=== PATIENT | male | born 1990 | race Caucasian/White ===

== ENCOUNTER 2018-01-16 09:11 | Emergency (ER) | payer SELFPAY ==
[~2018-01-16] VITALS: Ht 180.3 cm; Wt 136.1 kg
[2018-01-16 09:44] VITALS: BP 139/98
[2018-01-16] MEDS ORDERED: AMOX500T PO (09:57)
--- NOTE | 2018-01-16 09:57 | PHYS DOC ---
Adult General Chief Complaint Chief Complaint: SORE THROAT HPI HPI Patient is a 27 year old male with no significant medical history who presents today with sore throat and bilateral ear pain for 2 days. Patient denies any fever coughing or congestion. Review of Systems Review of Systems Constitutional: Denies fever or chills [] Eyes: Denies change in visual acuity, redness, or eye pain [] HENT: Reports bilateral ear pain and sore throat. Denies nasal congestion Respiratory: Denies cough or shortness of breath [] Cardiovascular: No additional information not addressed in HPI [] GI: Denies abdominal pain, nausea, vomiting, bloody stools or diarrhea [] : Denies dysuria or hematuria [] Musculoskeletal: Denies back pain or joint pain [] Integument: Denies rash or skin lesions [] Neurologic: Denies headache, focal weakness or sensory changes [] All other systems were reviewed and found to be within normal limits, except as documented in this note. Physical Exam Physical Exam Constitutional: Well developed, well nourished, no acute distress, non-toxic appearance. [] HENT: Normocephalic, atraumatic, bilateral external ears normal, oropharynx moist, no oral exudates, nose normal. Bilateral TM are moderately injected right worse than left with cloudy fluid bilaterally. Posterior pharynx with mild erythema, midline uvula no exudate Eyes: PERRLA, EOMI, conjunctiva normal, no discharge. [] Neck: Normal range of motion, no tenderness, supple, no stridor. [] Cardiovascular:Heart rate regular rhythm, no murmur [] Lungs & Thorax: Bilateral breath sounds clear to auscultation [] Abdomen: Bowel sounds normal, soft, no tenderness, no masses, no pulsatile masses. [] Skin: Warm, dry, no erythema, no rash. [] Back: No tenderness, no CVA tenderness. [] Extremities: No tenderness, no cyanosis, no clubbing, ROM intact, no edema. [] Neurologic: Alert and oriented X 3, normal motor function, normal sensory function, no focal deficits noted. [] Psychologic: Affect normal, judgement normal, mood normal. [] EKG EKG [] Radiology/Procedures Radiology/Procedures [] Course & Med Decision Making Course & Med Decision Making Pertinent Labs and Imaging studies reviewed. (See chart for details) This is a 27-year-old male patient presenting to the ED today with physical exam consistent with otitis media and pharyngitis. Patient be discharged with amoxicillin. Tylenol/ Motrin for pain or fever. Saltwater gargles recommended. Follow-up 1-2 weeks. Provided return to questions and discharged in stable condition. Dragon Disclaimer Dragon Disclaimer This electronic medical record was generated, in whole or in part, using a voice recognition dictation system. Departure Departure Impression: Primary Impression: Acute otitis media Additional Impression: Pharyngitis, acute Disposition: 01 HOME, SELF-CARE Condition: STABLE Referrals: NO PCP (PCP) follow up with your doctor in 1-2 weeks Patient Instructions: Otitis Media, Adult, Viral and Bacterial Pharyngitis Additional Instructions: You have otitis media/ear infection and pharyngitis. Take the prescribed antibiotics as ordered ensure you complete them. Take Tylenol or Motrin for pain or fever, use saltwater gargles as needed for sore throat. Follow-up with your doctor in 2 weeks. Come back to the ED at any point symptoms worsen. Scripts Amoxicillin (AMOXICILLIN) 500 Mg Tablet 1 TAB PO TID, #30 TAB Prov: GAYLA ZURITA APRN 01/16/18 Problem Qualifiers Primary Impression: Acute otitis media Otitis media type: other nonsuppurative Laterality: bilateral Recurrence: not specified as recurrent Qualified Codes: H65.193 - Other acute nonsuppurative otitis media, bilateral Additional Impression: Pharyngitis, acute Pharyngitis/tonsillitis etiology: unspecified etiology Qualified Codes: J02.9 - Acute pharyngitis, unspecified GAYLA ZURITA SERVICE COORDINATOR Jan 16, 2018 09:57
== END 2018-01-16 10:00 | disposition home or self-care (01) ==
LOC: EDBD 09:11 → ER 09:11
DX: J02.9 Acute pharyngitis, unspecified (principal); H66.93 Otitis media, unspecified, bilateral
CPT/HCPCS: 99283

== ENCOUNTER 2018-06-12 19:50 | Emergency (ER) | payer SELFPAY ==
[~2018-06-12] VITALS: Ht 188 cm; Wt 131.5 kg
[~2018-06-12 19:50] MED LIST: AMOX500T PO
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
--- NOTE | 2018-06-12 21:19 | RAD ---
PROCEDURE: PORTABLE CHEST 1V CLINICAL INDICATION: DIZZINESS, BLURRED VISION X2 MONTHS. FACIAL NUMBNESS X1 DAY COMPARISON: None FINDINGS: No pneumothorax identified. Cardiac and mediastinal contours unremarkable. No pulmonary consolidation or acute airspace disease. No acute osseous abnormalities identified. IMPRESSION: No pulmonary consolidation or acute airspace disease. Electronically signed by: Gelacio Saldaña DO (06/12/2018 9:16 PM) [facility]
[2018-06-12 21:48] LABS: BASO # 0.1 x10^3/uL (0.0-0.2); BASO % 1 % (0-3); EOS # 0.2 x10^3/uL (0.0-0.7); EOS % 2 % (0-3); HEMATOCRIT 47.9 % (39.0-53.0); HEMOGLOBIN 16.8 g/dL (13.0-17.5); LYMPH # 3.4 x10^3/uL (1.0-4.8); LYMPH % 37 % (24-48); MEAN CORPUSCULAR HEMOGLOBIN 32 pg (25-35); MEAN CORPUSCULAR HGB CONC 35 g/dL (31-37); MEAN CORPUSCULAR VOLUME 90 fL (79-100); MONO # 0.6 x10^3/uL (0.0-1.1); MONO % 7 % (0-9); NEUT # 4.8 x10^3uL (1.8-7.7); NEUT % 53 % (31-73); PLATELET COUNT 213 x10^3/uL (140-400); RED BLOOD COUNT 5.33 x10^6/uL (4.30-5.70); RED CELL DISTRIBUTION WIDTH 13.1 % (11.5-14.5)
[2018-06-12 22:06] LABS: CALCIUM 9.3 mg/dL (8.5-10.1); CREATININE 0.6 mg/dL (0.7-1.3); GFR 160.4; POTASSIUM 3.9 mmol/L (3.5-5.1)
[2018-06-12 22:12] LABS: ALBUMIN 4.1 g/dL (3.4-5.0); TOTAL BILIRUBIN 0.6 mg/dL (0.2-1.0); TOTAL PROTEIN 8.1 g/dL (6.4-8.2)
[2018-06-12 23:27] VITALS: BP 136/67
--- NOTE | 2018-06-13 04:57 | EKG ---
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
== END 2018-06-12 23:25 | disposition home or self-care (01) ==
LOC: ER 19:50
DX: R07.89 Other chest pain (principal); R42 Dizziness and giddiness; R06.02 Shortness of breath
CPT/HCPCS: 36415; 71045; 80053; 83690; 84484; 85025; 93005; 99284-25

== ENCOUNTER 2018-06-29 14:05 | Emergency (ER) | payer SELFPAY ==
[~2018-06-29] VITALS: Ht 182.9 cm; Wt 131.5 kg
[2018-06-29 15:15] VITALS: BP 140/76
[2018-06-29] MEDS ORDERED: AMOX1TAB61 PO (16:56)
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
== END 2018-06-29 17:21 | disposition home or self-care (01) ==
LOC: ER 14:05
DX: H65.196 Other acute nonsuppurative otitis media, recurrent, bilateral (principal); J01.00 Acute maxillary sinusitis, unspecified
CPT/HCPCS: 87070; 87880; 99283

== ENCOUNTER 2018-08-02 20:01 | Emergency (ER) | payer SELFPAY ==
[~2018-08-02] VITALS: Ht 182.9 cm; Wt 131.5 kg
[~2018-08-02 20:01] MED LIST changes: +AMOX1TAB61 PO
[2018-08-02] MEDS ORDERED: ONDANSETRON PF 4 MG/2 ML VIAL. IV ONE (20:15)
[2018-08-02] MEDS ORDERED: KETOROLAC 30 MG/ML VIAL. IV ONE (20:15)
[2018-08-02 20:28] LABS: BILIRUBIN,URINE NEGATIVE (NEG); CLARITY,URINE CLEAR; COLOR,URINE YELLOW; NITRITE,URINE NEGATIVE (NEG); PROTEIN,URINE NEGATIVE (NEG-TRACE); UROBILINOGEN,URINE 0.2 mg/dL (0.2 mg/dL)
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
[2018-08-02 20:36] LABS: BASO # 0.1 x10^3/uL (0.0-0.2); BASO % 1 % (0-3); EOS # 0.2 x10^3/uL (0.0-0.7); EOS % 2 % (0-3); HEMATOCRIT 47.4 % (39.0-53.0); HEMOGLOBIN 16.8 g/dL (13.0-17.5); LYMPH # 3.3 x10^3/uL (1.0-4.8); LYMPH % 38 % (24-48); MEAN CORPUSCULAR HEMOGLOBIN 32 pg (25-35); MEAN CORPUSCULAR HGB CONC 35 g/dL (31-37); MEAN CORPUSCULAR VOLUME 90 fL (79-100); MONO # 0.6 x10^3/uL (0.0-1.1); MONO % 7 % (0-9); NEUT # 4.6 x10^3uL (1.8-7.7); NEUT % 53 % (31-73); PLATELET COUNT 237 x10^3/uL (140-400); RED BLOOD COUNT 5.28 x10^6/uL (4.30-5.70); RED CELL DISTRIBUTION WIDTH 12.9 % (11.5-14.5); WHITE BLOOD COUNT 8.7 x10^3/uL (4.0-11.0)
[2018-08-02 20:44] LABS: AMORPHOUS SEDIMENT,UR PRESENT /HPF; BACTERIA,URINE 0 /HPF (0-FEW); GRANULAR CASTS,URINE OCCASIONAL /HPF; RBC,URINE 0 /HPF (0-2); SQUAMOUS EPITHELIAL CELL,UR FEW /LPF; WBC,URINE 0 /HPF (0-4)
[2018-08-02 20:48] LABS: CALCIUM 10.3 mg/dL (8.5-10.1); CREATININE 0.8 mg/dL (0.7-1.3); GFR 115.1
[2018-08-02 20:53] LABS: ALBUMIN 4.3 g/dL (3.4-5.0); ALBUMIN/GLOBULIN RATIO 1.2 (1.0-1.7); TOTAL BILIRUBIN 0.8 mg/dL (0.2-1.0); TOTAL PROTEIN 7.9 g/dL (6.4-8.2)
--- NOTE | 2018-08-02 22:09 | RAD ---
CT abdomen and pelvis without contrast: Reason for examination: Bilateral flank pain. Helical images were obtained through the abdomen and pelvis with no intravenous or oral contrast administered. Reconstruction was performed in sagittal and coronal planes. Exposure: One or more of the following individualized dose reduction techniques were utilized for this examination: 1. Automated exposure control 2. Adjustment of the mA and/or kV according to patient size 3. Use of iterative reconstruction technique. The lung bases are clear. The heart size is normal with no pericardial effusion. No focal lesions are seen at the liver or spleen, adrenal glands or pancreas. The gallbladder is contracted but no choleliths are identified. The abdominal aorta and inferior vena cava show no acute abnormalities. No abnormality seen at the appendix. There is no evidence of diverticulosis or diverticulitis. The small intestinal tract is not distended or obstructed. No abnormality seen at the stomach. The kidneys show no renal calculi, renal masses, hydronephrosis or evidence of obstructive uropathy. There does appear to be some parenchymal scarring at the posterior upper pole of the left kidney. No abnormality seen at the bladder, prostate gland or seminal vesicles. No free fluid or free air is seen in the abdomen or pelvis. No acute bony abnormality seen. IMPRESSION: Parenchymal changes consistent with parenchymal scarring at the upper pole of the left kidney. No renal calculi, hydronephrosis or obstructive uropathy. No abnormality seen at the appendix. No other focal abnormality seen in the abdomen or pelvis. Electronically signed by: Halie Badillo MD (08/02/2018 10:05 PM) [facility]
[2018-08-02 22:30] VITALS: BP 139/76
[2018-08-02] MEDS ORDERED: CYCL10TA2 PO (22:32)
== END 2018-08-02 22:45 | disposition home or self-care (01) ==
LOC: ER 20:01
DX: M54.5 Low back pain (principal); R74.8 Abnormal levels of other serum enzymes; R10.9 Unspecified abdominal pain; R35.0 Frequency of micturition
CPT/HCPCS: 36415; 74176; 80053; 81001; 83690; 85025; 96374; 96375; 99285; J1885; J2405

== ENCOUNTER 2019-04-19 18:56 | Emergency (ER) | payer SELFPAY ==
[~2019-04-19] VITALS: Ht 180.3 cm; Wt 131.5 kg
[~2019-04-19 18:56] MED LIST changes: +CYCL10TA2 PO
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
[2019-04-19 20:06] LABS: BASO # 0.1 x10^3/uL (0.0-0.2); BASO % 1 % (0-3); EOS # 0.2 x10^3/uL (0.0-0.7); EOS % 2 % (0-3); HEMATOCRIT 44.6 % (39.0-53.0); HEMOGLOBIN 15.9 g/dL (13.0-17.5); LYMPH # 3.5 x10^3/uL (1.0-4.8); LYMPH % 32 % (24-48); MEAN CORPUSCULAR HEMOGLOBIN 32 pg (25-35); MEAN CORPUSCULAR HGB CONC 36 g/dL (31-37); MEAN CORPUSCULAR VOLUME 90 fL (79-100); MONO # 0.7 x10^3/uL (0.0-1.1); MONO % 6 % (0-9); NEUT # 6.5 x10^3/uL (1.8-7.7); NEUT % 59 % (31-73); PLATELET COUNT 241 x10^3/uL (140-400); RED BLOOD COUNT 4.96 x10^6/uL (4.30-5.70)
[2019-04-19 20:08] LABS: CALCIUM 9.7 mg/dL (8.5-10.1); CREATININE 0.7 mg/dL (0.7-1.3); GFR 134.3
[2019-04-19 20:14] LABS: ALBUMIN/GLOBULIN RATIO 1.2 (1.0-1.7); TOTAL BILIRUBIN 0.5 mg/dL (0.2-1.0); TOTAL PROTEIN 7.4 g/dL (6.4-8.2)
[2019-04-19] MEDS ORDERED: CONTRAST GIVEN. MC PRN (21:00)
[2019-04-19] MEDS ORDERED: IOHEXOL 350 MG/ML 100 ML VIAL. IV ONE (21:30)
[2019-04-19 21:55] VITALS: BP 130/70
--- NOTE | 2019-04-19 23:16 | RAD ---
STUDY: CT angiography of the head and neck INDICATION: Blurred vision. Neck pain. Right face paresthesia. COMPARISON: None. TECHNIQUE: Axial CT imaging of the head and neck utilizing angiography protocol and performed after the intravenous administration of 75 cc Omnipaque 350 contrast. Multiplanar reformats and 3D MIP acquisitions were obtained. Encountered areas of stenosis are measured per NASCET criteria. One or more of the following individualized dose reduction techniques were utilized for this examination: 1. Automated exposure control 2. Adjustment of the mA and/or kV according to patient size 3. Use of iterative reconstruction technique. FINDINGS: CTA NECK: Common origin of the brachiocephalic and left common carotid arteries as well as the left vertebral artery originating from the vertebral arch. Patent origins. Patent common and extracranial internal carotid arteries the right extracranial vertebral artery is dominant. No dissection. CTA HEAD: Dominant right intracranial vertebral artery. The nondominant left vertebral artery does still contribute to basilar flow. The basilar artery is widely patent. Patent P1 and P2 posterior cerebral artery segments. Limited evaluation more distally due to bolus timing. Patent intracranial internal carotid arteries. No flow-limiting stenosis or branch vessel occlusion seen to involve the anterior or middle cerebral arteries. No discrete aneurysm. The right transverse sinus is dominant. Patent dural sinuses. Patent major intracerebral veins. MISCELLANEOUS: Limited evaluation for acute intracranial hemorrhage given contrast administration. No mass effect, midline shift or hydrocephalus is apparent. IMPRESSION: 1. No extracranial or intracranial vascular abnormality is identified to account for the patient's symptoms. 2. Limited evaluation for acute intracranial hemorrhage given the intravenous administration of contrast. Taking this into consideration, no confluent hematoma is apparent. No mass effect, midline shift or hydrocephalus. Electronically signed by: INEZ LOPEZ MD (04/19/2019 11:13 PM) [facility]
== END 2019-04-19 23:43 | disposition home or self-care (01) ==
LOC: ER 18:56
DX: M54.2 Cervicalgia (principal); R20.2 Paresthesia of skin; R42 Dizziness and giddiness; R51 Headache; F41.9 Anxiety disorder, unspecified; I10 Essential (primary) hypertension; Z98.890 Other specified postprocedural states; Z91.040 Latex allergy status
CPT/HCPCS: 36415; 70496; 70498; 80053; 85025; 99285

== ENCOUNTER 2019-04-30 20:01 | Emergency (ER) | payer SELFPAY ==
[~2019-04-30] VITALS: Ht 182.9 cm; Wt 136.1 kg
[2019-04-30 20:10] VITALS: BP 161/120
[2019-04-30 20:39] LABS: BILIRUBIN,URINE NEGATIVE (NEG); CLARITY,URINE CLEAR; NITRITE,URINE NEGATIVE (NEG); PROTEIN,URINE NEGATIVE (NEG-TRACE); UROBILINOGEN,URINE 0.2 mg/dL (0.2 mg/dL)
[2019-04-30 20:42] LABS: COLOR,URINE STRAW
[2019-04-30 20:46] LABS: BACTERIA,URINE 0 /HPF (0-FEW); RBC,URINE 0 /HPF (0-2); SQUAMOUS EPITHELIAL CELL,UR FEW /LPF; WBC,URINE 0 /HPF (0-4)
[2019-04-30] MEDS ORDERED: PHEN100T82 PO (21:58)
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
== END 2019-04-30 22:00 | disposition home or self-care (01) ==
LOC: ER 20:01
DX: R30.0 Dysuria (principal); R50.9 Fever, unspecified; F41.9 Anxiety disorder, unspecified; I10 Essential (primary) hypertension; I45.4 Nonspecific intraventricular block; F12.90 Cannabis use, unspecified, uncomplicated; Z98.890 Other specified postprocedural states; Z91.040 Latex allergy status
CPT/HCPCS: 81001; 87491; 87591; 99284

== ENCOUNTER 2019-06-18 15:18 | Emergency (ER) | payer SELFPAY ==
[~2019-06-18] VITALS: Ht 182.9 cm; Wt 141.0 kg
[~2019-06-18 15:18] MED LIST changes: +PHEN100T82 PO
[2019-06-18] MEDS ORDERED: IV NORMAL SALINE 1000ML BAG 1,000 ML IV SCH (15:41)
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
[2019-06-18 16:05] LABS: BASO # 0.1 x10^3/uL (0.0-0.2); BASO % 1 % (0-3); EOS # 0.2 x10^3/uL (0.0-0.7); EOS % 2 % (0-3); HEMATOCRIT 44.9 % (39.0-53.0); HEMOGLOBIN 16.3 g/dL (13.0-17.5); LYMPH # 2.5 x10^3/uL (1.0-4.8); LYMPH % 24 % (24-48); MEAN CORPUSCULAR HEMOGLOBIN 32 pg (25-35); MEAN CORPUSCULAR HGB CONC 36 g/dL (31-37); MEAN CORPUSCULAR VOLUME 89 fL (79-100); MONO # 0.7 x10^3/uL (0.0-1.1); MONO % 7 % (0-9); NEUT # 7.2 x10^3/uL (1.8-7.7); NEUT % 68 % (31-73); PLATELET COUNT 240 x10^3/uL (140-400); RED BLOOD COUNT 5.04 x10^6/uL (4.30-5.70); RED CELL DISTRIBUTION WIDTH 12.6 % (11.5-14.5); WHITE BLOOD COUNT 10.7 x10^3/uL (4.0-11.0)
[2019-06-18 16:08] LABS: BILIRUBIN,URINE NEGATIVE (NEG); CLARITY,URINE CLEAR; COLOR,URINE YELLOW; NITRITE,URINE NEGATIVE (NEG); PH,URINE 6.5; PROTEIN,URINE NEGATIVE (NEG-TRACE); UROBILINOGEN,URINE 0.2 mg/dL (0.2 mg/dL)
[2019-06-18 16:16] LABS: BARBITURATES NEG (NEG); BENZODIAZEPINES NEG (NEG); CANNABINOIDS POS (NEG); COCAINE NEG (NEG); METHADONE NEG (NEG); OPIATES NEG (NEG); PHENCYCLIDINE NEG (NEG)
[2019-06-18 16:16] LABS: CALCIUM 9.6 mg/dL (8.5-10.1); CREATININE 0.8 mg/dL (0.7-1.3); GFR 114.3; POTASSIUM 3.6 mmol/L (3.5-5.1)
[2019-06-18 16:19] LABS: AMPHETAMINE/METHAMPHETAMINE NEG (NEG)
[2019-06-18 16:22] LABS: ALBUMIN 4.2 g/dL (3.4-5.0); ALBUMIN/GLOBULIN RATIO 1.3 (1.0-1.7); MAGNESIUM 1.9 mg/dL (1.8-2.4); TOTAL BILIRUBIN 0.6 mg/dL (0.2-1.0); TOTAL PROTEIN 7.5 g/dL (6.4-8.2)
[2019-06-18 16:25] LABS: BACTERIA,URINE 0 /HPF (0-FEW); WBC,URINE 0 /HPF (0-4)
[2019-06-18 16:55] VITALS: BP 141/63
--- NOTE | 2019-06-19 05:23 | EKG ---
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
== END 2019-06-18 17:25 | disposition home or self-care (01) ==
LOC: ER 15:18
DX: F41.9 Anxiety disorder, unspecified (principal); R55 Syncope and collapse; I10 Essential (primary) hypertension; I45.4 Nonspecific intraventricular block; F12.90 Cannabis use, unspecified, uncomplicated; F17.200 Nicotine dependence, unspecified, uncomplicated; Z91.040 Latex allergy status
CPT/HCPCS: 36415; 80053; 80307; 81001; 83735; 84484; 85025; 85379; 93005; 96361; 96374; 99284; J2060; J7030

== ENCOUNTER 2019-12-02 20:21 | Emergency (ER) | payer SELFPAY ==
[~2019-12-02] VITALS: Ht 182.9 cm; Wt 136.3 kg
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
[2019-12-02 21:38] LABS: CALCIUM 9.9 mg/dL (8.5-10.1); CREATININE 0.8 mg/dL (0.7-1.3); GFR 114.3; POTASSIUM 4.5 mmol/L (3.5-5.1)
[2019-12-02 21:39] LABS: PROTHROMBIN TIME PATIENT 13.8 SEC (11.7-14.0)
[2019-12-02 21:43] LABS: ALBUMIN 4.2 g/dL (3.4-5.0); ALBUMIN/GLOBULIN RATIO 1.2 (1.0-1.7); MAGNESIUM 2.5 mg/dL (1.8-2.4); TOTAL BILIRUBIN 0.5 mg/dL (0.2-1.0); TOTAL PROTEIN 7.8 g/dL (6.4-8.2)
--- NOTE | 2019-12-02 21:57 | RAD ---
PA and lateral chest radiographs 12/02/2019 CLINICAL HISTORY: Chest pain. PA and lateral digital radiographs of the chest were obtained. Comparison study is dated 06/12/2018. The cardiac and mediastinal silhouettes are within normal limits in size and configuration. No pulmonary infiltrate is seen. No pleural effusion or pneumothorax is noted. The osseous structures are grossly intact. IMPRESSION: No acute abnormality is seen. Electronically signed by: Enrique Perez MD (12/02/2019 9:54 PM) [id number]
[2019-12-02 22:11] LABS: BASO # 0.1 x10^3/uL (0.0-0.2); BASO % 1 % (0-3); EOS # 0.3 x10^3/uL (0.0-0.7); EOS % 3 % (0-3); HEMATOCRIT 45.2 % (39.0-53.0); HEMOGLOBIN 16.2 g/dL (13.0-17.5); LYMPH # 3.2 x10^3/uL (1.0-4.8); LYMPH % 30 % (24-48); MEAN CORPUSCULAR HEMOGLOBIN 32 pg (25-35); MEAN CORPUSCULAR HGB CONC 36 g/dL (31-37); MEAN CORPUSCULAR VOLUME 89 fL (79-100); MONO # 0.7 x10^3/uL (0.0-1.1); MONO % 7 % (0-9); NEUT # 6.5 x10^3/uL (1.8-7.7); NEUT % 60 % (31-73); PLATELET COUNT 235 x10^3/uL (140-400); RED BLOOD COUNT 5.11 x10^6/uL (4.30-5.70); RED CELL DISTRIBUTION WIDTH 12.8 % (11.5-14.5); WHITE BLOOD COUNT 10.7 x10^3/uL (4.0-11.0)
[2019-12-03 00:48] VITALS: BP 130/60
--- NOTE | 2019-12-03 07:15 | EKG ---
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
== END 2019-12-03 01:07 | disposition home or self-care (01) ==
LOC: ER 20:21
DX: R00.2 Palpitations (principal); R07.89 Other chest pain; F41.9 Anxiety disorder, unspecified; I10 Essential (primary) hypertension; F12.90 Cannabis use, unspecified, uncomplicated; Z87.891 Personal history of nicotine dependence; Z98.890 Other specified postprocedural states; Z91.040 Latex allergy status
CPT/HCPCS: 36415; 71046; 80053; 83735; 84443; 84484; 85025; 85610; 85730; 93005; 99285

== ENCOUNTER 2020-05-10 17:01 | Emergency (ER) | payer SELFPAY ==
[~2020-05-10] VITALS: Ht 180.3 cm; Wt 126.0 kg
[2020-05-10 18:14] LABS: BASO # 0.1 x10^3/uL (0.0-0.2); BASO % 1 % (0-3); EOS # 0.1 x10^3/uL (0.0-0.7); EOS % 1 % (0-3); HEMATOCRIT 45.3 % (39.0-53.0); LYMPH # 2.2 x10^3/uL (1.0-4.8); LYMPH % 28 % (24-48); MEAN CORPUSCULAR HEMOGLOBIN 31 pg (25-35); MEAN CORPUSCULAR HGB CONC 35 g/dL (31-37); MEAN CORPUSCULAR VOLUME 89 fL (79-100); MONO # 0.6 x10^3/uL (0.0-1.1); MONO % 8 % (0-9); NEUT # 4.7 x10^3/uL (1.8-7.7); NEUT % 62 % (31-73); PLATELET COUNT 220 x10^3/uL (140-400); RED CELL DISTRIBUTION WIDTH 12.7 % (11.5-14.5); WHITE BLOOD COUNT 7.7 x10^3/uL (4.0-11.0)
[2020-05-10 18:17] LABS: CALCIUM 9.9 mg/dL (8.5-10.1); CREATININE 0.8 mg/dL (0.7-1.3); GFR 113.5; POTASSIUM 3.9 mmol/L (3.5-5.1)
[2020-05-10 18:23] LABS: ALBUMIN 4.2 g/dL (3.4-5.0); ALBUMIN/GLOBULIN RATIO 1.2 (1.0-1.7); MAGNESIUM 2.3 mg/dL (1.8-2.4); TOTAL BILIRUBIN 1.1 mg/dL (0.2-1.0); TOTAL PROTEIN 7.7 g/dL (6.4-8.2)
[2020-05-10 18:31] LABS: CREATINE KINASE 60 U/L (39-308)
[2020-05-10 18:53] LABS: BILIRUBIN,URINE NEGATIVE (NEG); CLARITY,URINE CLOUDY; COLOR,URINE YELLOW; NITRITE,URINE NEGATIVE (NEG); PH,URINE 7.5 (<5.0-8.0); PROTEIN,URINE NEGATIVE (NEG-TRACE); UROBILINOGEN,URINE 0.2 mg/dL (0.2 mg/dL)
[2020-05-10 18:59] LABS: BACTERIA,URINE 0 /HPF (0-FEW); RBC,URINE 0 /HPF (0-2)
--- NOTE | 2020-05-10 19:18 | RAD ---
Exam performed: One view chest. Indication: Reason: chest pain / Spl. Instructions: / History: Date of Service: 05/10/2020 6:14 PM Comparison: Two-view chest from 12/02/2019. Single AP upright portable view chest findings: Cardiomediastinal silhouette is mildly enlarged. No acute infiltrates, effusion or pneumothorax is d etected. The bony structures are normal. Impression: No acute findings seen Electronically signed by: Yaneth Villalobos MD (05/10/2020 7:16 PM) [facility] CENTERGeremias
[2020-05-10] MEDS ORDERED: LIDO:MAALOX 1:1 20 ML SINGLE DOSE. SWSW ONE (20:30)
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
[2020-05-10 21:39] VITALS: BP 141/78
--- NOTE | 2020-05-12 10:14 | EKG ---
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
[2020-08-01] MEDS ORDERED: CALC200T23 PO (14:09)
[2020-08-01] MEDS ORDERED: ACET325T21 PO (14:09)
== END 2020-05-10 21:50 | disposition home or self-care (01) ==
LOC: ER 17:01
DX: R07.2 Precordial pain (principal); M79.602 Pain in left arm; E78.00 Pure hypercholesterolemia, unspecified; I10 Essential (primary) hypertension; F32.9 Major depressive disorder, single episode, unspecified; F41.9 Anxiety disorder, unspecified; Z87.891 Personal history of nicotine dependence; Z91.040 Latex allergy status
CPT/HCPCS: 36415; 71045; 80053; 81001; 82553; 83690; 83735; 83880; 84484; 85025; 85379; 93005; 99285-25

== ENCOUNTER 2020-06-20 21:29 | Observation (INO) | payer SELFPAY ==
[~2020-06-20] VITALS: Ht 180.3 cm; Wt 119.0 kg
--- NOTE | 2020-06-20 22:05 | EKG ---
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
[2020-06-20 22:09] LABS: BASO # 0.1 x10^3/uL (0.0-0.2); BASO % 1 % (0-3); EOS # 0.2 x10^3/uL (0.0-0.7); EOS % 2 % (0-3); HEMATOCRIT 43.9 % (39.0-53.0); HEMOGLOBIN 15.9 g/dL (13.0-17.5); LYMPH # 3.4 x10^3/uL (1.0-4.8); LYMPH % 32 % (24-48); MEAN CORPUSCULAR HEMOGLOBIN 32 pg (25-35); MEAN CORPUSCULAR HGB CONC 36 g/dL (31-37); MEAN CORPUSCULAR VOLUME 88 fL (79-100); MONO # 0.7 x10^3/uL (0.0-1.1); MONO % 7 % (0-9); NEUT # 6.2 x10^3/uL (1.8-7.7); NEUT % 59 % (31-73); PLATELET COUNT 227 x10^3/uL (140-400); RED CELL DISTRIBUTION WIDTH 13.2 % (11.5-14.5); WHITE BLOOD COUNT 10.7 x10^3/uL (4.0-11.0)
[2020-06-20] MEDS ORDERED: ASPIRIN 325 MG TABLET PO ONE (22:15)
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
[2020-06-20 22:21] LABS: CALCIUM 9.7 mg/dL (8.5-10.1); CREATININE 0.7 mg/dL (0.7-1.3); GFR 132.4; POTASSIUM 3.7 mmol/L (3.5-5.1)
[2020-06-20] MEDS: NITROGLYCERIN SUBLINGUAL 0.4 MG BOTTLE OF 25. SL PRN ×2 (22:21→22:29)
[2020-06-20 22:27] LABS: ALBUMIN 4.3 g/dL (3.4-5.0); ALBUMIN/GLOBULIN RATIO 1.2 (1.0-1.7); MAGNESIUM 2.3 mg/dL (1.8-2.4); TOTAL BILIRUBIN 1.1 mg/dL (0.2-1.0); TOTAL PROTEIN 7.9 g/dL (6.4-8.2)
--- NOTE | 2020-06-20 22:28 | RAD ---
Exam: Chest one view INDICATION: Chest pain TECHNIQUE: Frontal view of the chest Comparisons: 05/10/2020 FINDINGS: The cardiomediastinal silhouette and pulmonary vessels are within normal limits. The lung and pleural spaces are clear. IMPRESSION: No acute cardiopulmonary process. Electronically signed by: Yaneils Lowe MD (06/20/2020 10:25 PM) ADELITA
[2020-06-20 22:50] LABS: CREATINE KINASE 42 U/L (39-308)
[2020-06-20 23:30] VITALS: BP 151/53
[2020-06-20 23:43] LABS: BILIRUBIN,URINE NEGATIVE (NEG); CLARITY,URINE CLEAR; COLOR,URINE YELLOW; NITRITE,URINE NEGATIVE (NEG); PH,URINE 6.5 (<5.0-8.0); PROTEIN,URINE NEGATIVE (NEG-TRACE)
[2020-06-20 23:52] LABS: BACTERIA,URINE 0 /HPF (0-FEW)
[2020-06-21] MEDS ORDERED: PANT40TA77 PO (00:06)
[2020-06-21] MEDS ORDERED: NITR0.4T22 SL (00:06)
[2020-06-21] MEDS ORDERED: SERT50TA PO (00:06)
--- NOTE | 2020-06-21 02:36 | EKG ---
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
[2020-06-21 03:45] VITALS: BP 110/65
--- NOTE | 2020-06-21 06:14 | EKG ---
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
[2020-06-21 07:00] VITALS: BP 111/67
[2020-06-21] MEDS ORDERED: MAGNESIUM HYDROXIDE 2,400 MG/30 ML ORAL.SUSP. PO PRN (07:00)
[2020-06-21] MEDS ORDERED: CALCIUM CARBONATE 500 MG TAB.CHEW PO PRN (07:00)
[2020-06-21] MEDS ORDERED: ZOLPIDEM 5 MG TABLET. PO PRN (07:00)
[2020-06-21] MEDS ORDERED: ACETAMINOPHEN 325 MG TABLET. PO PRN (07:00)
[2020-06-21] MEDS ORDERED: ONDANSETRON PF 4 MG/2 ML VIAL. IVP PRN (07:00)
[2020-06-21] MEDS ORDERED: BISACODYL 10 MG SUPP.RECT. PR PRN (07:00)
[2020-06-21] MEDS ORDERED: MAG HYDROX/ALUMINUM HYD/SIMETH 30 ML ORAL.SUSP PO PRN (07:00)
[2020-06-21] MEDS ORDERED: MORPHINE SULFATE 2 MG/ML VIAL. IV PRN (07:00)
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
[2020-06-21 11:00] VITALS: BP 115/67
[2020-06-21] MEDS ORDERED: NITROGLYCERIN SUBLINGUAL 0.4 MG BOTTLE OF 25. SL PRN (12:30)
[2020-06-21] MEDS: SERTRALINE 50 MG TABLET. PO SCH (13:34)
[2020-06-21] MEDS: PANTOPRAZOLE 40 MG TABLET.DR. PO SCH (13:34)
[2020-06-21 15:00] VITALS: BP 115/62
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
[2020-06-21 19:45] VITALS: BP 107/70
[2020-06-21 23:35] VITALS: BP 127/64
[2020-06-22 03:30] VITALS: BP 125/73
[2020-06-22 06:10] LABS: ALBUMIN 3.7 g/dL (3.4-5.0); DIRECT BILIRUBIN 0.3 mg/dL (0.0-0.2); TOTAL BILIRUBIN 1.2 mg/dL (0.2-1.0); TOTAL PROTEIN 6.9 g/dL (6.4-8.2)
[2020-06-22 06:11] LABS: CHOLESTEROL/HDL RATIO 7.2
[2020-06-22 07:00] VITALS: BP 119/73
[2020-06-22] MEDS: SERTRALINE 50 MG TABLET. PO SCH (08:24)
[2020-06-22] MEDS: PANTOPRAZOLE 40 MG TABLET.DR. PO SCH (08:24)
--- NOTE | 2020-06-22 10:47 | PDOC ---
PROGRESS NOTES Date of Service DATE: 06/22/20 TIME: 10:45 Subjective Subjective Patient seen and examined Objective Objective Vital Signs Date Time Temp Pulse Resp B/P (MAP) Pulse Ox O2 Delivery O2 Flow Rate FiO2 06/22/20 07:40 Room Air 06/22/20 07:00 97.9 60 18 119/73 (88) 97 97.9 Intake and Output 06/22/20 07:00 Intake Total 480 ml Output Total 1200 ml Balance -720 ml Intake Oral 480 ml Output Urine Total 1200 ml Physical Exam Abdomen: Normal bowel sounds Heart: Regular rate General: No acute distress Lungs: Clear to auscultation Assessment Assessment Problems Medical Problems: (1) Chest pain Status: Acute 1. Chest pain. Chest pain has largely resolved. EKG shows no acute ischemic changes. Troponin has been normal x3. D-dimer is normal. The patient is feeling better. Echo pending this morning. If no significant abnormalities on his echo he may be discharged from a cardiac viewpoint and will follow up as an outpatient. 2. Reported pulmonary hypertension. Echocardiogram as above. 3. Hypertension. Reasonable control at this time we will continue to monitor. 4. Hyperlipidemia. Morning lab shows an LDL of 119, HDL of 23 and triglycerides of 115. Would attempt diet treatment with present medications. Outpatient follow-up. Comment Review of Relevant I have reviewed the following items caron (where applicable) has been applied. Labs Laboratory Tests Test 06/20/20 21:45 06/20/20 23:33 06/21/20 03:30 06/21/20 08:05 White Blood Count 10.7 x10^3/uL (4.0-11.0) Red Blood Count 5.00 x10^6/uL (4.30-5.70) Hemoglobin 15.9 g/dL (13.0-17.5) Hematocrit 43.9 % (39.0-53.0) Mean Corpuscular Volume 88 fL (79-100) Mean Corpuscular Hemoglobin 32 pg (25-35) Mean Corpuscular Hemoglobin Concent 36 g/dL (31-37) Red Cell Distribution Width 13.2 % (11.5-14.5) Platelet Count 227 x10^3/uL (140-400) Neutrophils (%) (Auto) 59 % (31-73) Lymphocytes (%) (Auto) 32 % (24-48) Monocytes (%) (Auto) 7 % (0-9) Eosinophils (%) (Auto) 2 % (0-3) Basophils (%) (Auto) 1 % (0-3) Neutrophils # (Auto) 6.2 x10^3/uL (1.8-7.7) Lymphocytes # (Auto) 3.4 x10^3/uL (1.0-4.8) Monocytes # (Auto) 0.7 x10^3/uL (0.0-1.1) Eosinophils # (Auto) 0.2 x10^3/uL (0.0-0.7) Basophils # (Auto) 0.1 x10^3/uL (0.0-0.2) D-Dimer (Liana) < 0.27 ug/mlFEU Sodium Level 139 mmol/L (136-145) Potassium Level 3.7 mmol/L (3.5-5.1) Chloride Level 102 mmol/L (98-107) Carbon Dioxide Level 27 mmol/L (21-32) Anion Gap 10 (6-14) Blood Urea Nitrogen 13 mg/dL (8-26) Creatinine 0.7 mg/dL (0.7-1.3) Estimated GFR (Cockcroft-Gault) 132.4 BUN/Creatinine Ratio 19 (6-20) Glucose Level 98 mg/dL (70-99) Calcium Level 9.7 mg/dL (8.5-10.1) Magnesium Level 2.3 mg/dL (1.8-2.4) Total Bilirubin 1.1 mg/dL (0.2-1.0) Aspartate Amino Transf (AST/SGOT) 32 U/L (15-37) Alanine Aminotransferase (ALT/SGPT) 84 U/L (16-63) Alkaline Phosphatase 79 U/L (46-116) Creatine Kinase 42 U/L (39-308) Creatine Kinase MB (Mass) < 0.5 ng/mL (0.0-3.6) Creatine Kinase MB Relative Index % (0-4) Troponin I Quantitative < 0.017 ng/mL (0.000-0.055) < 0.017 ng/mL (0.000-0.055) < 0.017 ng/mL (0.000-0.055) Total Protein 7.9 g/dL (6.4-8.2) Albumin 4.3 g/dL (3.4-5.0) Albumin/Globulin Ratio 1.2 (1.0-1.7) Lipase 83 U/L (73-393) Urine Collection Type Void Urine Color Yellow Urine Clarity Clear Urine pH 6.5 (<5.0-8.0) Urine Specific [place] <=1.005 (1.000-1.030) Urine Protein Negative mg/dL (NEG-TRACE) Urine Glucose (UA) Negative mg/dL (NEG) Urine Ketones (Stick) Negative mg/dL (NEG) Urine Blood Negative (NEG) Urine Nitrite Negative (NEG) Urine Bilirubin Negative (NEG) Urine Urobilinogen Dipstick 1.0 mg/dL (0.2 mg/dL) Urine Leukocyte Esterase Negative (NEG) Urine RBC 1-2 /HPF (0-2) Urine WBC 1-4 /HPF (0-4) Urine Squamous Epithelial Cells Occ /LPF Urine Bacteria 0 /HPF (0-FEW) Test 06/22/20 05:15 Total Bilirubin 1.2 mg/dL (0.2-1.0) Direct Bilirubin 0.3 mg/dL (0.0-0.2) Aspartate Amino Transf (AST/SGOT) 21 U/L (15-37) Alanine Aminotransferase (ALT/SGPT) 64 U/L (16-63) Alkaline Phosphatase 64 U/L (46-116) Total Protein 6.9 g/dL (6.4-8.2) Albumin 3.7 g/dL (3.4-5.0) Triglycerides Level 115 mg/dL (0-150) Cholesterol Level 165 mg/dL (0-200) LDL Cholesterol, Calculated 119 mg/dL (0-100) VLDL Cholesterol, Calculated 23 mg/dL (0-40) Non-HDL Cholesterol Calculated 142 mg/dL (0-129) HDL Cholesterol 23 mg/dL (40-60) Cholesterol/HDL Ratio 7.2 Laboratory Tests Test 06/22/20 05:15 Total Bilirubin 1.2 mg/dL (0.2-1.0) Direct Bilirubin 0.3 mg/dL (0.0-0.2) Aspartate Amino Transf (AST/SGOT) 21 U/L (15-37) Alanine Aminotransferase (ALT/SGPT) 64 U/L (16-63) Alkaline Phosphatase 64 U/L (46-116) Total Protein 6.9 g/dL (6.4-8.2) Albumin 3.7 g/dL (3.4-5.0) Triglycerides Level 115 mg/dL (0-150) Cholesterol Level 165 mg/dL (0-200) LDL Cholesterol, Calculated 119 mg/dL (0-100) VLDL Cholesterol, Calculated 23 mg/dL (0-40) Non-HDL Cholesterol Calculated 142 mg/dL (0-129) HDL Cholesterol 23 mg/dL (40-60) Cholesterol/HDL Ratio 7.2 Medications Current Medications Nitroglycerin (Nitrostat) 0.4 mg PRN Q5MIN PRN SL CHEST PAIN Last administered on 06/20/20at 22:29; Start 06/20/20 at 22:15; Stop 06/21/20 at 13:11; Status DC Aspirin (Sean Aspirin) 325 mg 1X ONCE PO Last administered on 06/20/20at 22:21; Start 06/20/20 at 22:15; Stop 06/20/20 at 22:25; Status DC Ondansetron HCl (Zofran) 4 mg PRN Q6HRS PRN IVP NAUSEA/VOMITING; Start 06/21/20 at 07:00 Al Hydroxide/Mg Hydroxide (Mylanta Plus Xs) 30 ml PRN Q3HRS PRN PO HEARTBURN / GAS; Start 06/21/20 at 07:00 Calcium Carbonate/ Glycine (Tums) 500 mg PRN Q3HRS PRN PO UPSET STOMACH; Start 06/21/20 at 07:00 Zolpidem Tartrate (Ambien) 5 mg PRN QHS PRN PO INSOMNIA, MAY REPEAT IN 1HR; Start 06/21/20 at 07:00 Morphine Sulfate (Morphine Sulfate) 2 mg PRN Q1HR PRN IV PAIN; Start 06/21/20 at 07:00 Acetaminophen (Tylenol) 650 mg PRN Q6HRS PRN PO Headaches, Temp > 101.5F; Start 06/21/20 at 07:00 Magnesium Hydroxide (Milk Of Magnesia) 2,400 mg PRN Q12HR PRN PO CONSTIPATION; Start 06/21/20 at 07:00 Bisacodyl (Dulcolax Supp) 10 mg PRN DAILY PRN MO CONSTIPATION; Start 06/21/20 at 07:00 Nitroglycerin (Nitrostat) 0.4 mg PRN Q5MIN PRN SL CHEST PAIN; Start 06/21/20 at 12:30 Pantoprazole Sodium (Protonix) 40 mg DAILYAC PO Last administered on 06/22/20at 08:24; Start 06/21/20 at 13:00 Sertraline HCl (Zoloft) 50 mg DAILY PO Last administered on 06/22/20at 08:24; Start 06/21/20 at 13:00 Active Scripts Active Reported Protonix (Pantoprazole Sodium) 40 Mg Tablet.dr 40 Mg PO DAILYAC Zoloft (Sertraline Hcl) 50 Mg Tablet 1 Tab PO DAILY NITROGLYCERIN SubLingual (Nitroglycerin) 0.4 Mg Tab.subl 0.4 Mg SL PRN Q5MIN PRN Vitals/I & O Vital Sign - Last 24 Hours 06/21/20 06/21/20 06/21/20 06/21/20 11:00 15:00 19:45 20:00 Temp 97.7 97.9 97.5 97.7 97.9 97.5 Pulse 57 61 63 Resp 16 16 17 B/P (MAP) 115/67 (83) 115/62 (79) 107/70 (82) Pulse Ox 97 97 96 O2 Delivery Room Air Room Air Room Air Room Air 06/21/20 06/22/20 06/22/20 06/22/20 23:35 03:30 07:00 07:40 Temp 97.9 97.7 97.9 97.9 97.7 97.9 Pulse 50 46 60 Resp 18 18 18 B/P (MAP) 127/64 (85) 125/73 (90) 119/73 (88) Pulse Ox 98 97 97 O2 Delivery Room Air Room Air Room Air Room Air Intake and Output 06/21/20 06/21/20 06/22/20 15:00 23:00 07:00 Intake Total 0 ml 240 ml 240 ml Output Total 0 ml 600 ml 600 ml Balance 0 ml -360 ml -360 ml Justifications for Admission Other Justification TREY VERDUGO MD Jun 22, 2020 10:47
[2020-06-22 11:00] VITALS: BP 114/72
--- NOTE | 2020-06-22 12:56 | CARD ---
MR#: [id number] Date of Study: 06/22/2020 Ordering Physician: HAILEE CAVAZOS, Referring Physician: HAILEE CAVAZOS, Tech: Kayla Nunez RDCS APPROVED REPORT EXAM: Two-dimensional and M-mode echocardiogram with Doppler and color Doppler. Other Information Quality : Good Rhythm : Bradycardia INDICATION Chest Pain 2D DIMENSIONS RVDd3.2 (2.9-3.5cm)Left Atrium(2D)4.5 (1.6-4.0cm) IVSd0.8 (0.7-1.1cm)Aortic Root(2D)3.3 (2.0-3.7cm) LVDd6.3 (3.9-5.9cm)LVOT Diameter2.7 (1.8-2.4cm) PWd0.9 (0.7-1.1cm)LVDs3.6 (2.5-4.0cm) FS (%) 43.1 %SV147.4 ml LVEF(%)60.0 (>50%) Aortic Valve AoV Peak Saul.140.2cm/Taz Peak GR.7.9mmHg Mitral Valve MV E Jwiteeye637.0cm/sMV DECEL CRET873xm MV A Qgakwdyn12.2cm/sE/A Ratio2.5 TDI Lateral E' P. V13.97cm/sMedial E' P. V8.37cm/s E/Lateral E'7.9E/Medial E'13.1 Tricuspid Valve TR P. Umoeorci502io/sRAP [id number] TR Peak Gr.30gbPnQENX97bjRp Pulmonary Vein S1 Gohjyfwn67.3cm/sS2 Rtmlurrm58.63cm/s D2 Vepshqfd81.6cm/s LEFT VENTRICLE The Left Ventricle is borderline dilated. There is normal left ventricular wall thickness. The left v entricular systolic function is normal and the ejection fraction is within normal range. The Ejection Fraction is 50-55%. There is normal LV segmental wall motion. The left ventricular diastolic functio n and filling is normal for age. RIGHT VENTRICLE The right ventricle is normal size. The right ventricular systolic function is normal. ATRIA The left atrium is mildly dilated. The right atrium is mildly dilated. The interatrial septum is inta ct with no evidence for an atrial septal defect or patent foramen ovale as noted on 2-D or Doppler im aging. AORTIC VALVE The aortic valve is normal in structure and function. Doppler and Color Flow revealed no significant aortic regurgitation. There is no significant aortic valvular stenosis. MITRAL VALVE The mitral valve is normal in structure and function. There is no evidence of mitral valve prolapse. There is no mitral valve stenosis. Doppler and Color Flow revealed no mitral valve regurgitation note d. TRICUSPID VALVE The tricuspid valve is normal in structure and function. Doppler and Color Flow revealed trace tricus pid regurgitation. The PA pressure was estimated at 21 mmHg. There is no tricuspid valve stenosis. PULMONIC VALVE The pulmonic valve is not well visualized. Doppler and Color Flow revealed trace pulmonic valvular re gurgitation. There is no pulmonic valvular stenosis. GREAT VESSELS The aortic root is normal in size. The ascending aorta is normal in size. The IVC is normal in size a nd collapses >50% with inspiration. PERICARDIAL EFFUSION There is no evidence of significant pericardial effusion. Critical Notification Critical Value: No <Conclusion> The Left Ventricle is borderline dilated. The left ventricular systolic function is normal and the ejection fraction is within normal range. The Ejection Fraction is 50-55%. Doppler and Color Flow revealed no significant aortic regurgitation. There is no significant aortic valvular stenosis. Doppler and Color Flow revealed no mitral valve regurgitation noted. Doppler and Color Flow revealed trace tricuspid regurgitation. The PA pressure was estimated at 21 mmHg. Signed by : Rodriguez Paz MD Electronically Approved : 06/22/2020 12:56:01
[2020-06-22] MEDS ORDERED: LIDO:MAALOX 1:1 20 ML SINGLE DOSE. SWSW ONE (13:00)
--- NOTE | 2020-06-22 13:27 | PDOC ---
[employer] PROGRESS NOTE Date of Service DOS: DATE: 06/22/20 TIME: 12:39 Chief Complaint Chief Complaint Chest pain Obesity Hypertension Plan: Troponins were negative x2, received aspirin in ED Consults cardiology Will obtain TTE Morphine, nitroglycerin as needed FEN - Cardiac diet PPX - SCDs FULL CODE History of Present Illness History of Present Illness Mr Davison is a 30 yo M w/ PMHx hypertension, hyperlipidemia, anxiety, depression, obesity who presents to the ER with complaints of left-sided chest pain that began 1-2 hours prior to arrival. He was "vigorously" cleaning his home prior to this. Reported left-sided chest pain, 6/10, and describes his pain as "heaviness and tightness ". Some associated diaphoresis. He has a history of angina and took his own nitroglycerin with some improvement. Will admit for further medical management. LDL is 119, A1c is 4.7. No risk factors. Echocardiogram with no abnormalities troponins negative and EKG without any concerning findings. Cardiology was consulted as patient noted that he had an abnormal cardiac work-up over in [facility]. On further investigation it turns just had a similar investigation if he had here. He does have a lot of life stressors currently in significant anxiety that Jeffery is not controlling. He does follow with [facility] and has been trying to follow-up on Zoom with them. 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 He has a 9-year-old stepson in fourth grade and a 6-year-old daughter in kindergarten but she currently lives with her grandparents in [place], he notes this is the required thing because his has some "issues". He does not want to discuss why his 6-year-old daughter is not currently living with him and his . Vitals/I&O Vitals/I&O: Vital Signs Date Time Temp Pulse Resp B/P (MAP) Pulse Ox O2 Delivery O2 Flow Rate FiO2 06/22/20 11:00 98.0 63 18 114/72 (86) 98 Room Air 98.0 I & O 06/21/20 06/21/20 06/22/20 15:00 23:00 07:00 Intake Total 0 ml 240 ml 240 ml Output Total 0 ml 600 ml 600 ml Balance 0 ml -360 ml -360 ml Physical Exam General: No acute distress Heart: Regular rate Abdomen: Normal bowel sounds Labs Labs: Laboratory Tests Test 06/22/20 05:15 Total Bilirubin 1.2 mg/dL (0.2-1.0) Direct Bilirubin 0.3 mg/dL (0.0-0.2) Aspartate Amino Transf (AST/SGOT) 21 U/L (15-37) Alanine Aminotransferase (ALT/SGPT) 64 U/L (16-63) Alkaline Phosphatase 64 U/L (46-116) Total Protein 6.9 g/dL (6.4-8.2) Albumin 3.7 g/dL (3.4-5.0) Triglycerides Level 115 mg/dL (0-150) Cholesterol Level 165 mg/dL (0-200) LDL Cholesterol, Calculated 119 mg/dL (0-100) VLDL Cholesterol, Calculated 23 mg/dL (0-40) Non-HDL Cholesterol Calculated 142 mg/dL (0-129) HDL Cholesterol 23 mg/dL (40-60) Cholesterol/HDL Ratio 7.2 Assessment and Plan Assessmemt and Plan Problems Medical Problems: (1) Chest pain Status: Acute Comment Review of Relevant I have reviewed the following items caron (where applicable) has been applied. Medications: Current Medications Medications (Trade) Dose Ordered Sig/Nadine Route PRN Reason Start Time Stop Time Status Last Admin Dose Admin Pantoprazole Sodium (Protonix) 40 mg DAILYAC PO 06/21/20 13:00 06/22/20 08:24 Sertraline HCl (Zoloft) 50 mg DAILY PO 06/21/20 13:00 06/22/20 08:24 Justifications for Admission Other Justification WINNIE ELIZABETH MD Jun 22, 2020 13:27
--- NOTE | 2020-06-22 13:39 | PDOC3 ---
Discharge Summary Visit Information Date of Admission: Jun 20, 2020 Date of Discharge: Jun 22, 2020 Admitting Diagnosis: Chest pain Final Diagnosis Problems Medical Problems: (1) Chest pain Status: Acute Brief Hospital Course Allergies Allergies Coded Allergies Type Severity Reaction Last Updated Verified diphenhydramine Allergy Intermediate Unknown 06/21/20 Yes hydroxyzine Allergy Intermediate Unknown 06/21/20 Yes latex Allergy Intermediate 05/10/20 Yes Vital Signs Vital Signs Date Time Temp Pulse Resp B/P (MAP) Pulse Ox O2 Delivery O2 Flow Rate FiO2 06/22/20 11:00 98.0 63 18 114/72 (86) 98 Room Air 98.0 Lab Results Laboratory Tests Test 06/20/20 21:45 06/20/20 23:33 06/21/20 03:30 06/21/20 08:05 White Blood Count 10.7 x10^3/uL (4.0-11.0) Red Blood Count 5.00 x10^6/uL (4.30-5.70) Hemoglobin 15.9 g/dL (13.0-17.5) Hematocrit 43.9 % (39.0-53.0) Mean Corpuscular Volume 88 fL (79-100) Mean Corpuscular Hemoglobin 32 pg (25-35) Mean Corpuscular Hemoglobin Concent 36 g/dL (31-37) Red Cell Distribution Width 13.2 % (11.5-14.5) Platelet Count 227 x10^3/uL (140-400) Neutrophils (%) (Auto) 59 % (31-73) Lymphocytes (%) (Auto) 32 % (24-48) Monocytes (%) (Auto) 7 % (0-9) Eosinophils (%) (Auto) 2 % (0-3) Basophils (%) (Auto) 1 % (0-3) Neutrophils # (Auto) 6.2 x10^3/uL (1.8-7.7) Lymphocytes # (Auto) 3.4 x10^3/uL (1.0-4.8) Monocytes # (Auto) 0.7 x10^3/uL (0.0-1.1) Eosinophils # (Auto) 0.2 x10^3/uL (0.0-0.7) Basophils # (Auto) 0.1 x10^3/uL (0.0-0.2) D-Dimer (Liana) < 0.27 ug/mlFEU Sodium Level 139 mmol/L (136-145) Potassium Level 3.7 mmol/L (3.5-5.1) Chloride Level 102 mmol/L (98-107) Carbon Dioxide Level 27 mmol/L (21-32) Anion Gap 10 (6-14) Blood Urea Nitrogen 13 mg/dL (8-26) Creatinine 0.7 mg/dL (0.7-1.3) Estimated GFR (Cockcroft-Gault) 132.4 BUN/Creatinine Ratio 19 (6-20) Glucose Level 98 mg/dL (70-99) Calcium Level 9.7 mg/dL (8.5-10.1) Magnesium Level 2.3 mg/dL (1.8-2.4) Total Bilirubin 1.1 mg/dL (0.2-1.0) Aspartate Amino Transf (AST/SGOT) 32 U/L (15-37) Alanine Aminotransferase (ALT/SGPT) 84 U/L (16-63) Alkaline Phosphatase 79 U/L (46-116) Creatine Kinase 42 U/L (39-308) Creatine Kinase MB (Mass) < 0.5 ng/mL (0.0-3.6) Creatine Kinase MB Relative Index % (0-4) Troponin I Quantitative < 0.017 ng/mL (0.000-0.055) < 0.017 ng/mL (0.000-0.055) < 0.017 ng/mL (0.000-0.055) Total Protein 7.9 g/dL (6.4-8.2) Albumin 4.3 g/dL (3.4-5.0) Albumin/Globulin Ratio 1.2 (1.0-1.7) Lipase 83 U/L (73-393) Urine Collection Type Void Urine Color Yellow Urine Clarity Clear Urine pH 6.5 (<5.0-8.0) Urine Specific [place] <=1.005 (1.000-1.030) Urine Protein Negative mg/dL (NEG-TRACE) Urine Glucose (UA) Negative mg/dL (NEG) Urine Ketones (Stick) Negative mg/dL (NEG) Urine Blood Negative (NEG) Urine Nitrite Negative (NEG) Urine Bilirubin Negative (NEG) Urine Urobilinogen Dipstick 1.0 mg/dL (0.2 mg/dL) Urine Leukocyte Esterase Negative (NEG) Urine RBC 1-2 /HPF (0-2) Urine WBC 1-4 /HPF (0-4) Urine Squamous Epithelial Cells Occ /LPF Urine Bacteria 0 /HPF (0-FEW) Test 06/22/20 05:15 Total Bilirubin 1.2 mg/dL (0.2-1.0) Direct Bilirubin 0.3 mg/dL (0.0-0.2) Aspartate Amino Transf (AST/SGOT) 21 U/L (15-37) Alanine Aminotransferase (ALT/SGPT) 64 U/L (16-63) Alkaline Phosphatase 64 U/L (46-116) Total Protein 6.9 g/dL (6.4-8.2) Albumin 3.7 g/dL (3.4-5.0) Triglycerides Level 115 mg/dL (0-150) Cholesterol Level 165 mg/dL (0-200) LDL Cholesterol, Calculated 119 mg/dL (0-100) VLDL Cholesterol, Calculated 23 mg/dL (0-40) Non-HDL Cholesterol Calculated 142 mg/dL (0-129) HDL Cholesterol 23 mg/dL (40-60) Cholesterol/HDL Ratio 7.2 Laboratory Tests Test 06/22/20 05:15 Total Bilirubin 1.2 mg/dL (0.2-1.0) Direct Bilirubin 0.3 mg/dL (0.0-0.2) Aspartate Amino Transf (AST/SGOT) 21 U/L (15-37) Alanine Aminotransferase (ALT/SGPT) 64 U/L (16-63) Alkaline Phosphatase 64 U/L (46-116) Total Protein 6.9 g/dL (6.4-8.2) Albumin 3.7 g/dL (3.4-5.0) Triglycerides Level 115 mg/dL (0-150) Cholesterol Level 165 mg/dL (0-200) LDL Cholesterol, Calculated 119 mg/dL (0-100) VLDL Cholesterol, Calculated 23 mg/dL (0-40) Non-HDL Cholesterol Calculated 142 mg/dL (0-129) HDL Cholesterol 23 mg/dL (40-60) Cholesterol/HDL Ratio 7.2 Brief Hospital Course Mr Davison is a 30 yo M w/ PMHx hypertension, hyperlipidemia, anxiety, depression, obesity who presents to the ER with complaints of left-sided chest pain that began 1-2 hours prior to arrival. He was "vigorously" cleaning his home prior to this. Reported left-sided chest pain, 09/25, and describes his pain as "heaviness and tightness ". Some associated diaphoresis. He has a history of angina and took his own nitroglycerin with some improvement. Will admit for further medical management. LDL is 119, A1c is 4.7. No risk factors. Echocardiogram with no abnormalities, borderline enlarged LV, troponins negative and EKG without any concerning findings. Cardiology was consulted as patient noted that he had an abnormal cardiac work-up over in [facility]. On further investigation it turns just had a similar investigation if he had here. He does have a lot of life stressors currently in significant anxiety that Zoloft is not controlling. He does follow with [facility] and has been trying to follow-up on Zoom with them. 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 He has a 9-year-old stepson in fourth grade and a 6-year-old daughter in kindergarten but she currently lives with her grandparents in [place], he notes this is the required thing because his has some "issues". He does not want to discuss why his 6-year-old daughter is not currently living with him and his . Consults: Cardiology Problem list: Chest pain Obesity Hypertension Anxiety with depression Greater than 30 minutes spent on d/c home with self care Discharge Information Condition at Discharge: Improved Follow Up: Weeks (1) Disposition/Orders: D/C to Home Scheduled Pantoprazole Sodium (Protonix ) 40 Mg Tablet.dr, 40 MG PO DAILYAC for GERD, (Reported) Entered as Reported by: SAMMIE CANNON RN on 06/21/205 Last Action: Continued on 06/21/201221 by DEEJAY SAUER Sertraline Hcl (Zoloft) 50 Mg Tablet, 1 TAB PO DAILY for mental health , #30 Ref 2 (Reported) Entered as Reported by: SAMMIE CANNON RN on 06/21/205 Last Action: Continued on 06/21/201221 by DEEJAY SAUER Scheduled PRN Nitroglycerin (NITROGLYCERIN SubLingual) 0.4 Mg Tab.subl, 0.4 MG SL PRN Q5MIN PRN for CHEST PAIN, (Reported) Entered as Reported by: SAMMIE CANNON RN on 06/21/206 Last Action: Continued on 06/21/20 1222 by DEEJAY SAUER Justicifation of Admission Dx: Justifications for Admission: Justification of Admission Dx: N/A WINNIE ELIZABETH MD Jun 22, 2020 13:39
--- NOTE | 2020-06-22 15:49 | NUR ---
Pt alert and oriented throughout shift. Pt with no complaitns throughout shift. Pt tolerated IV removal. Catheter tip intact, pressure applied, bleeding stopped. Pt educated on next does of medications. Pt educated on chest pain and anxiety. Pt walked out to door by RN. Pt got in private vehicle with his .
== END 2020-06-22 15:58 | disposition home or self-care (01) ==
LOC: ER 21:29 → 2 NORTH 22:57 → ER 23:20
PROVIDERS: ADMIT Internal Medicine; ATTEND Internal Medicine
DX: R07.89 Other chest pain (principal); I10 Essential (primary) hypertension; I45.4 Nonspecific intraventricular block; E66.9 Obesity, unspecified; E78.00 Pure hypercholesterolemia, unspecified; E78.5 Hyperlipidemia, unspecified; F41.9 Anxiety disorder, unspecified; F32.9 Major depressive disorder, single episode, unspecified; F41.8 Other specified anxiety disorders; I27.20 Pulmonary hypertension, unspecified; K76.0 Fatty (change of) liver, not elsewhere classified; Z87.891 Personal history of nicotine dependence; Z79.82 Long term (current) use of aspirin; Z98.890 Other specified postprocedural states; Z68.36 Body mass index [BMI] 36.0-36.9, adult
CPT/HCPCS: 36415; 71045; 80053; 80061; 80076; 81001; 82553; 83690; 83735; 84484; 85025; 85379; 93005; 93306; 99285; G0378; G0379

== ENCOUNTER 2020-08-03 19:20 | Observation (INO) | payer SELFPAY ==
[~2020-08-03] VITALS: Ht 182.9 cm; Wt 119.5 kg
[~2020-08-03 19:20] MED LIST changes: +ACET325T21 PO; +CALC200T23 PO; +NITR0.4T22 SL; +PANT40TA77 PO; +SERT50TA PO
[2020-08-03 19:49] LABS: BASO % 0 % (0-3); EOS # 0.2 x10^3/uL (0.0-0.7); EOS % 2 % (0-3); HEMATOCRIT 44.2 % (39.0-53.0); LYMPH # 0.8 x10^3/uL (1.0-4.8); LYMPH % 7 % (24-48); MEAN CORPUSCULAR HEMOGLOBIN 32 pg (25-35); MEAN CORPUSCULAR HGB CONC 36 g/dL (31-37); MEAN CORPUSCULAR VOLUME 89 fL (79-100); MONO # 0.6 x10^3/uL (0.0-1.1); MONO % 6 % (0-9); NEUT # 9.6 x10^3/uL (1.8-7.7); NEUT % 86 % (31-73); PLATELET COUNT 228 x10^3/uL (140-400); RED CELL DISTRIBUTION WIDTH 12.7 % (11.5-14.5); WHITE BLOOD COUNT 11.2 x10^3/uL (4.0-11.0)
[2020-08-03 19:59] LABS: CALCIUM 9.7 mg/dL (8.5-10.1); CREATININE 0.7 mg/dL (0.7-1.3); GFR 132.4; POTASSIUM 4.1 mmol/L (3.5-5.1)
[2020-08-03 19:59] LABS: BILIRUBIN,URINE NEGATIVE (NEG); CLARITY,URINE CLEAR; COLOR,URINE YELLOW; NITRITE,URINE NEGATIVE (NEG); PH,URINE 6.5 (<5.0-8.0); PROTEIN,URINE NEGATIVE (NEG-TRACE)
[2020-08-03 20:05] LABS: ALBUMIN 4.2 g/dL (3.4-5.0); ALBUMIN/GLOBULIN RATIO 1.1 (1.0-1.7); MAGNESIUM 2.1 mg/dL (1.8-2.4); TOTAL BILIRUBIN 0.9 mg/dL (0.2-1.0); TOTAL PROTEIN 8.1 g/dL (6.4-8.2)
[2020-08-03 20:07] LABS: BACTERIA,URINE 0 /HPF (0-FEW); RBC,URINE 0 /HPF (0-2)
[2020-08-03 20:09] LABS: WBC,URINE RARE /HPF (0-4)
[2020-08-03 20:10] LABS: % LYMPHS 4 % (24-48); % MONOS 2 % (0-10); % SEGS 94 % (35-66); PLT ESTIMATE ADEQUATE (ADEQUATE)
--- NOTE | 2020-08-03 20:32 | RAD ---
Exam: Chest one view INDICATION: Chest pain TECHNIQUE: Frontal view of the chest Comparisons: 07/31/2020 FINDINGS: The cardiomediastinal silhouette and pulmonary vessels are within normal limits. The lung and pleural spaces are clear. IMPRESSION: No acute cardiopulmonary process. Electronically signed by: Yanelis Lowe MD (08/03/2020 8:29 PM) ADELITA
--- NOTE | 2020-08-03 21:50 | EKG ---
[facility] [address] [place] [address] Test Date: 2020-08-03 Test Time: 19:25:27 Pat Name: MARILYN GUAN Department: Room: Gender: M Office Nurse: : 1990 Requested By: ZHAO TY Order Number: [id number] Reading MD: Measurements Intervals [place] Rate: 97 P: 34 MD: 138 QRS: -23 QRSD: 96 T: 40 QT: 342 QTc: 438 Interpretive Statements SINUS RHYTHM LEFTWARD AXIS OTHERWISE NORMAL ECG RI6.02 No previous ECG available for comparison
[2020-08-03] MEDS ORDERED: IV NORMAL SALINE 1000ML BAG 1,000 ML IV ONE (22:00)
[2020-08-03] MEDS ORDERED: ONDANSETRON PF 4 MG/2 ML VIAL. IVP ONE (22:00)
[2020-08-03] MEDS ORDERED: AZIT500T4 PO (23:33)
[2020-08-03] MEDS ORDERED: DEXA6TAB PO (23:33)
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
[2020-08-03] MEDS ORDERED: ONDA4TAB7 PO (23:50)
[2020-08-04] MEDS ORDERED: ONDANSETRON PF 4 MG/2 ML VIAL. IV PRN (00:30)
--- NOTE | 2020-08-04 03:52 | EKG ---
[facility] [address] [place] [address] Test Date: 2020-08-03 Test Time: 23:40:40 Pat Name: MARILYN GUAN Department: Room: Gender: M [employer] Director: : 1990 Requested By: ZHAO TY Order Number: [id number] Reading MD: Measurements Intervals [place] Rate: 101 P: 13 CO: 144 QRS: -9 QRSD: 90 T: 19 QT: 326 QTc: 429 Interpretive Statements SINUS TACHYCARDIA LEFTWARD AXIS OTHERWISE NORMAL ECG RI6.02 No previous ECG available for comparison
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
[2020-08-04] MEDS ORDERED: KETOROLAC 30 MG/ML VIAL. ONE (08:27)
[2020-08-04] MEDS ORDERED: KETOROLAC 30 MG/ML VIAL. IVP PRN (08:30)
[2020-08-04] MEDS ORDERED: NITROGLYCERIN SUBLINGUAL 0.4 MG BOTTLE OF 25. SL PRN (13:45)
[2020-08-04] MEDS ORDERED: CALCIUM CARBONATE 500 MG TAB.CHEW PO PRN (13:45)
[2020-08-04] MEDS ORDERED: ACETAMINOPHEN 325 MG TABLET. PO PRN (13:45)
[2020-08-04] MEDS ORDERED: ONDANSETRON ODT 4 MG TAB.RAPDIS. PO PRN (14:00)
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
[2020-08-04] MEDS ORDERED: DOXY100T PO (14:13)
--- NOTE | 2020-08-04 14:14 | DISCH ---
DISCHARGE INSTRUCTIONS Condition on Discharge Condition on Discharge: Stable Activity After Discharge Activity Instructions for Disc: Activity as tolerated Lifting Instructions after Dis: No heavy lifting, No pulling or pushing Exercise Instruction after Dis: Progress as tolerated Driving Instructions after Dis: Do not drive today Weight Bearing Status after Di: No restrictions Diet after Discharge Diet after Discharge: Cardiac Diet Texture: Regular Liquid Texture: Thin Liquid Swallowing Supervision: None needed Checks after Discharge Checks after discharge: Check blood press - daily Contacting the DR. after DC Call your doctor for: If your condition worsens Follow-Up Follow up with: pcp this week Treatment/Equipment after DC Adaptive Equipment Issued: None NOEL DONOHUE MD Aug 04, 2020 14:14
[2020-08-04 16:27] VITALS: BP 114/60
--- NOTE | 2020-08-04 17:04 | PDOC ---
DAHLIA PHILLIPS IMPREGNATOR 08/04/20 1704: CARDIO Progress Notes Date and Time Date of Service 08/04/20 Time of Evaluation 1310 Subjective Subjective: No shortness of breath, No Palpitations, Other (feeling tired. CP improved ) Vitals Vitals Vital Signs Date Time Temp Pulse Resp B/P (MAP) Pulse Ox O2 Delivery O2 Flow Rate FiO2 08/04/20 12:30 62 20 113/58 (76) 96 Room Air 08/03/20 20:23 98.8 98.8 Weight Weight [ ] Laboratory Labs Laboratory Tests Test 08/03/20 19:35 08/03/20 19:52 08/03/20 20:25 08/03/20 22:20 White Blood Count 11.2 x10^3/uL (4.0-11.0) Red Blood Count 5.00 x10^6/uL (4.30-5.70) Hemoglobin 16.0 g/dL (13.0-17.5) Hematocrit 44.2 % (39.0-53.0) Mean Corpuscular Volume 89 fL (79-100) Mean Corpuscular Hemoglobin 32 pg (25-35) Mean Corpuscular Hemoglobin Concent 36 g/dL (31-37) Red Cell Distribution Width 12.7 % (11.5-14.5) Platelet Count 228 x10^3/uL (140-400) Neutrophils (%) (Auto) 86 % (31-73) Lymphocytes (%) (Auto) 7 % (24-48) Monocytes (%) (Auto) 6 % (0-9) Eosinophils (%) (Auto) 2 % (0-3) Basophils (%) (Auto) 0 % (0-3) Neutrophils # (Auto) 9.6 x10^3/uL (1.8-7.7) Lymphocytes # (Auto) 0.8 x10^3/uL (1.0-4.8) Monocytes # (Auto) 0.6 x10^3/uL (0.0-1.1) Eosinophils # (Auto) 0.2 x10^3/uL (0.0-0.7) Basophils # (Auto) 0.0 x10^3/uL (0.0-0.2) Segmented Neutrophils % 94 % (35-66) Lymphocytes % 4 % (24-48) Monocytes % 2 % (0-10) Platelet Estimate Adequate (ADEQUATE) D-Dimer (Liana) < 0.27 ug/mlFEU Sodium Level 144 mmol/L (136-145) Potassium Level 4.1 mmol/L (3.5-5.1) Chloride Level 104 mmol/L (98-107) Carbon Dioxide Level 28 mmol/L (21-32) Anion Gap 12 (6-14) Blood Urea Nitrogen 12 mg/dL (8-26) Creatinine 0.7 mg/dL (0.7-1.3) Estimated GFR (Cockcroft-Gault) 132.4 BUN/Creatinine Ratio 17 (6-20) Glucose Level 93 mg/dL (70-99) Calcium Level 9.7 mg/dL (8.5-10.1) Magnesium Level 2.1 mg/dL (1.8-2.4) Total Bilirubin 0.9 mg/dL (0.2-1.0) Aspartate Amino Transf (AST/SGOT) 15 U/L (15-37) Alanine Aminotransferase (ALT/SGPT) 44 U/L (16-63) Alkaline Phosphatase 84 U/L (46-116) Troponin I Quantitative < 0.017 ng/mL (0.000-0.055) < 0.017 ng/mL (0.000-0.055) RU-Ijs-U-Type Natriuretic Peptide 78 pg/mL (0-124) Total Protein 8.1 g/dL (6.4-8.2) Albumin 4.2 g/dL (3.4-5.0) Albumin/Globulin Ratio 1.1 (1.0-1.7) Lipase 65 U/L (73-393) Urine Collection Type Unknown Urine Color Yellow Urine Clarity Clear Urine pH 6.5 (<5.0-8.0) Urine Specific Dalbo 1.020 (1.000-1.030) Urine Protein Negative mg/dL (NEG-TRACE) Urine Glucose (UA) Negative mg/dL (NEG) Urine Ketones (Stick) Negative mg/dL (NEG) Urine Blood Negative (NEG) Urine Nitrite Negative (NEG) Urine Bilirubin Negative (NEG) Urine Urobilinogen Dipstick 1.0 mg/dL (0.2 mg/dL) Urine Leukocyte Esterase Trace (NEG) Urine RBC 0 /HPF (0-2) Urine WBC Rare /HPF (0-4) Urine Squamous Epithelial Cells Few /LPF Urine Bacteria 0 /HPF (0-FEW) SARS-CoV-2 RNA (SHILO) Negative (Negative) Test 08/04/20 02:40 Troponin I Quantitative < 0.017 ng/mL (0.000-0.055) Physical Exam HEENT: Neck Supple W Full Motion Chest: Symmetric LUNGS: Clear to Auscultation Heart: RRR Abdomen: Soft N/T Extremities: No Edema Neurology: alert, oriented, follow commands Assessment Assessment This is a 30 yo male who presented secondary to body aches, chest pain, and fevers. Patient reports not feeling well overall for the last couple of days. Reports having fever of 101 at home. Developed pain in his central chest. Describes as aching. No dizziness or lightheadedness. Was seen by our service last week for intermittent chest pain that has been present for the last 6 months. Follows with primary ent nurse, Dr. Willett. Underwent LHC 07/02/20 which revealed normal coronary arteries. LVEDP was mildly elevated at 22. He also has a history of bradycardiac for which he underwent event monitor earlier this year. AMI has been ruled out. ASSESSMENT 1. Chest pain, atypical. AMI ruled out. LHC 07/02/20 with normal coronaries as noted above 2. Leukocytosis, fevers, myalgias. COVID negative 3. Hypertension; controlled 4. GERD; PPI 5. Depression, anxiety Recommendations Supportive care Okay to discharge from a CV standpoint F/u with primary ent nurse, Dr. Willett Justicifation of Admission Dx: Justifications for Admission: Justification of Admission Dx: N/A TREY BALTAZAR MD 08/05/20 0832: CARDIO Progress Notes Plan Plan Late entry for 08/04/2020 Patient seen and examined. Agree with above nurse practitioner note. I discussed his case with his primary ent nurse at [facility]. Reviewed his cardiac catheterization which was unremarkable The patient is been having fevers at home although current evaluation for a rapid Covid analysis is negative. Low suspicion for primary cardiac process given extensive prior work-up including event monitoring. No further cardiovascular testing necessary at this time. Further treatment per primary team. DAHLIA PHILLIPS APRN Aug 04, 2020 17:04 TREY BALTAZAR MD Aug 05, 2020 08:32
[2020-08-04] MEDS ORDERED: DOXYCYCLINE HYCLATE 100 MG TABLET PO SCH (21:00)
[2020-08-05] MEDS ORDERED: PANTOPRAZOLE 40 MG TABLET.DR. PO SCH (07:30)
[2020-08-05] MEDS ORDERED: SERTRALINE 50 MG TABLET. PO SCH (09:00)
== END 2020-08-04 16:40 | disposition home or self-care (01) ==
LOC: ER 19:20 → ED HOLD 08-04 02:00
PROVIDERS: ADMIT Family Medicine; ATTEND Family Medicine
DX: J18.9 Pneumonia, unspecified organism (principal); Z20.822 Contact with and (suspected) exposure to COVID-19; R07.89 Other chest pain; I10 Essential (primary) hypertension; D72.829 Elevated white blood cell count, unspecified; K21.9 Gastro-esophageal reflux disease without esophagitis; F32.9 Major depressive disorder, single episode, unspecified; F41.9 Anxiety disorder, unspecified; I25.10 Atherosclerotic heart disease of native coronary artery without angina pectoris; I27.20 Pulmonary hypertension, unspecified; I51.7 Cardiomegaly; I45.4 Nonspecific intraventricular block; E11.9 Type 2 diabetes mellitus without complications; E66.01 Morbid (severe) obesity due to excess calories; E78.00 Pure hypercholesterolemia, unspecified; E78.5 Hyperlipidemia, unspecified; R16.0 Hepatomegaly, not elsewhere classified; K76.0 Fatty (change of) liver, not elsewhere classified; I42.9 Cardiomyopathy, unspecified; B34.9 Viral infection, unspecified; Z87.891 Personal history of nicotine dependence; Z68.35 Body mass index [BMI] 35.0-35.9, adult
CPT/HCPCS: 36415; 71045; 80053; 81001; 83690; 83735; 83880; 84484; 85007; 85025; 85379; 93005; 96361; 96374; 96375; 96376; 99285; G0378; J1885; J2405; J7030; U0003; U0005; G0379

== ENCOUNTER 2020-11-12 19:17 | Emergency (ER) | payer SELFPAY ==
[~2020-11-12] VITALS: Ht 185.4 cm; Wt 125.0 kg
[~2020-11-12 19:17] MED LIST changes: +AZIT500T4 PO; +DEXA6TAB PO; +DOXY100T PO; +ONDA4TAB7 PO
[2020-11-13] MEDS ORDERED: AMOX1TAB61 PO (05:03)
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
[2020-11-13] MEDS ORDERED: AMOXICILLIN/K CLAV 875/125MG TABLET. PO ONE (05:30)
[2020-11-13 05:44] VITALS: BP 142/84
--- NOTE | 2020-11-13 17:57 | NUR ---
IP: Informed pt of negative covid test. Pt verbalized understanding.
== END 2020-11-13 05:52 | disposition home or self-care (01) ==
LOC: ER 19:17
DX: J32.9 Chronic sinusitis, unspecified (principal); Z20.822 Contact with and (suspected) exposure to COVID-19; I10 Essential (primary) hypertension; E78.00 Pure hypercholesterolemia, unspecified; I25.10 Atherosclerotic heart disease of native coronary artery without angina pectoris; Z87.891 Personal history of nicotine dependence; Z88.5 Allergy status to narcotic agent; Z91.040 Latex allergy status
CPT/HCPCS: 99283; U0003; U0005

== ENCOUNTER 2021-01-27 04:25 | Emergency (ER) | payer OTHER ==
[~2021-01-27] VITALS: Ht 182.9 cm; Wt 136.0 kg
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
[2021-01-27] MEDS ORDERED: ACETAMINOPHEN 500 MG TABLET PO ONE (05:30)
--- NOTE | 2021-01-27 06:09 | RAD ---
XR CHEST 2V History: Reason: covid, pna / Spl. Instructions: / History: Comparison: None. Findings: Mild ill-defined bibasilar and mid opacities. No pleural effusion. No pneumothorax. Normal heart size . Impression: 1. Mild multifocal ill-defined opacities, can be seen with viral pneumonia. Electronically signed by: Hector Villagran DO (01/27/2021 6:06 AM) [facility]
[2021-01-27] MEDS ORDERED: LEVO750T5 PO (06:52)
[2021-01-27] MEDS ORDERED: PRED20TA PO (06:52)
[2021-01-27] MEDS ORDERED: methylPREDNISolone SOD SUCC PF 125 MG/2 ML VIAL. IM ONE (07:00)
[2021-01-27] MEDS ORDERED: IV NORMAL SALINE 1000ML BAG 1,000 ML IV ONE (08:30)
[2021-01-27 09:01] LABS: BASO % 0 % (0-3); EOS % 0 % (0-3); HEMATOCRIT 40.8 % (39.0-53.0); HEMOGLOBIN 14.7 g/dL (13.0-17.5); LYMPH # 1.5 x10^3/uL (1.0-4.8); LYMPH % 27 % (24-48); MEAN CORPUSCULAR HEMOGLOBIN 32 pg (25-35); MEAN CORPUSCULAR HGB CONC 36 g/dL (31-37); MEAN CORPUSCULAR VOLUME 88 fL (79-100); MONO # 0.4 x10^3/uL (0.0-1.1); MONO % 7 % (0-9); NEUT # 3.6 x10^3/uL (1.8-7.7); NEUT % 65 % (31-73); PLATELET COUNT 144 x10^3/uL (140-400); RED BLOOD COUNT 4.66 x10^6/uL (4.30-5.70); RED CELL DISTRIBUTION WIDTH 12.5 % (11.5-14.5); WHITE BLOOD COUNT 5.6 x10^3/uL (4.0-11.0)
[2021-01-27 09:35] LABS: CALCIUM 9.3 mg/dL (8.5-10.1); CREATININE 0.9 mg/dL (0.7-1.3); GFR 99.1
[2021-01-27 09:48] LABS: ALBUMIN 3.9 g/dL (3.4-5.0); ALBUMIN/GLOBULIN RATIO 1.3 (1.0-1.7); TOTAL BILIRUBIN 0.5 mg/dL (0.2-1.0)
[2021-01-27 11:45] VITALS: BP 123/66
== END 2021-01-27 12:16 | disposition home or self-care (01) ==
LOC: ER 04:25
DX: U07.1 COVID-19 (principal); J12.82 Pneumonia due to coronavirus disease 2019; I25.10 Atherosclerotic heart disease of native coronary artery without angina pectoris; E78.00 Pure hypercholesterolemia, unspecified; I10 Essential (primary) hypertension; Z88.5 Allergy status to narcotic agent; Z91.040 Latex allergy status
CPT/HCPCS: 36415; 71046; 80053; 83605; 83735; 83880; 84484; 85025; 87040; 93005; 96360; 96372; 99285; J2930; J7030